=== PATIENT | male | born 1960 | race Caucasian/White ===

== ENCOUNTER 2018-04-05 16:26 | Emergency (ER) | payer OTHER ==
[2018-04-05 17:46] VITALS: BP 144/90
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
[2018-04-05] MEDS ORDERED: Tetan/Diph/Pertus SYR(Tdap)* 0.5 ML SYR(BOOSTRIX) use SYR IM ONE (18:17)
--- NOTE | 2018-04-05 19:11 | RAD ---
Indication: Left hand injury. 4 views of left hand demonstrates no fracture. Carpal bones are unremarkable. Mild degenerative changes of the second through fifth interphalangeal joint is noted. IMPRESSION: No fracture of the left hand is noted with special attention paid to the fifth digit.
--- NOTE | 2018-04-05 19:12 | RAD ---
Indication: Left shoulder pain. 4 views of left shoulder demonstrates no fracture. AC joint arthritis is noted. No other bone or joint abnormality is identified. IMPRESSION: No fracture of the left shoulder is noted.
== END 2018-04-05 19:38 | disposition home or self-care (01) ==
LOC: UCCORT 16:26
DX: S40.012A Contusion of left shoulder, initial encounter (principal); S60.222A Contusion of left hand, initial encounter; V89.2XXA Person injured in unspecified motor-vehicle accident, traffic, initial encounter; Y93.9 Activity, unspecified; Y99.9 Unspecified external cause status; I10 Essential (primary) hypertension; F17.210 Nicotine dependence, cigarettes, uncomplicated
CPT/HCPCS: 90471; 90715; 99211; G0463